=== PATIENT | female | born 1955 | race Caucasian/White ===

== ENCOUNTER → 2018-08-24 | Outpatient (CLI) | payer BC, MEDICARE ==
[2016-03-09 10:18] VITALS: BP 140/91
--- NOTE | 2018-08-25 08:56 | KCIC ---
MR of the left shoulder Indication: Pain. Technique: Standard multiplanar sequences are obtained. Findings: Artifact: Moderate motion degradation Acromioclavicular joint: Mild degenerative change Rotator cuff: * Supraspinatus-infraspinatus tendon: Complete full-thickness tear of the supraspinatus tendon with retraction measuring 3 cm. * Subscapularis tendon: Tendinosis, mild partial tear * Muscle bulk: Moderate to severe volume loss, particularly the supraspinatus * Subacromial subdeltoid bursa: Small effusion. Fluid: Trace glenohumeral effusion. Glenohumeral cartilage: Severe primary osteoarthritis with severe chondral loss. Subchondral cysts. Labrum: Heterogeneous signal within the inferior labrum. No definite labral detachment although evaluation of the labrum is limited by the motion. Biceps tendon: Intact Bones: No lesion or acute fracture. Soft tissue: No acute findings. Impression: 1. Complete full-thickness rupture of the supraspinatus tendon with retraction and moderate to severe atrophy. Partial mild subscapularis tendon tear. 2. Severe glenohumeral joint primary osteoarthritis. Electronically signed by: Parrish Woodward MD (08/25/2018 8:53 AM) [id number]
== END | disposition home or self-care (01) ==
LOC: KCIC MRI 16:03
PROVIDERS: ATTEND Physician Assistant Surgical
DX: S46.812A Strain of other muscles, fascia and tendons at shoulder and upper arm level, left arm, initial encounter (principal); M19.012 Primary osteoarthritis, left shoulder; X58.XXXA Exposure to other specified factors, initial encounter; Y93.89 Activity, other specified; Y92.89 Other specified places as the place of occurrence of the external cause; Y99.8 Other external cause status
CPT/HCPCS: 73221

== ENCOUNTER → 2019-02-14 | Outpatient (CLI) | payer BC, MEDICARE ==
[2016-03-09 10:18] VITALS: BP 140/91
--- NOTE | 2019-02-14 14:17 | KCIC ---
Bilateral digital screening mammograms with 3-D tomosynthesis: Reason for examination: Routine screening. History of breast reduction. Comparison is made to previous study dated 05/06/2016. Bilateral mammograms in CC and oblique projections were obtained with 2-D imaging and 3-D tomosynthesis imaging on a [employer] Inspiration unit and reviewed on the workstation. Interpretation was made with the benefit of CAD. The skin and nipples show no abnormalities. No abnormal axillary lymph nodes are seen. The breast parenchyma is predominantly fatty. (Breast density: Category A.) There are postop changes evident. There are no dominant masses, suspicious calcifications or architectural distortion. Impression: No evidence of malignancy. Recommend routine screening. BI-RAD Category 1: Negative. "Our facility is accredited by the [employer] Mammography Program." This patient's information has been entered into a reminder system for the patient to be notified with the results of her examination and a target date for the next mammogram. Electronically signed by: Eva Contreras MD (02/14/2019 2:13 PM) [id number]
== END | disposition home or self-care (01) ==
LOC: KCIC MAMMO 12:13
PROVIDERS: ATTEND Family Medicine
DX: Z12.31 Encounter for screening mammogram for malignant neoplasm of breast (principal)
CPT/HCPCS: 77063; 77067